=== PATIENT | female | born 1935 | race Caucasian/White ===

== ENCOUNTER 2016-10-27 11:00 | Emergency (ER) | payer MEDICARE ==
[2016-10-27 11:58] LABS: BILIRUBIN NEGATIVE (NEGATIVE); BLOOD NEGATIVE Ery/uL (NEGATIVE); CLARITY CLEAR (CLEAR); COLOR YELLOW (YELLOW); GLUCOSE (U) NORMAL (NORMAL); KETONE (U) NEGATIVE (NEGATIVE); LEUKOCYTES NEGATIVE Leu/uL (NEGATIVE); NITRITE NEGATIVE (NEGATIVE); PROTEIN NEGATIVE (NEGATIVE); SPECIFIC GRAVITY <=1.005 (1.001-1.030); UROBILINOGEN 0.2 mg/dL (0.2-1.0); pH 6.5 (5.0-9.0)
[2016-10-27 11:59] LABS: BASOPHIL 0.1 % (0-2); EOSINOPHIL 0.1 % (0-7); HCT 41.9 % (37.0-47.0); HGB 14.1 g/dl (12.5-16.0); LYMPHOCYTE 18.9 % (15-48); MCH 29.5 pg (25.0-31.0); MCHC 33.7 g/dL (32.0-36.0); MCV 87.7 fL (78.0-100.0); MONOCYTE 8.1 % (0-12); MPV 8.7 fL (6.0-9.5); NEUTROPHIL 72.8 % (41-80); PLT 283 K/uL (150-400); RBC 4.78 M/uL (4.20-5.40); RDW 12.4 % (11.5-14.0); WBC 7.4 K/uL (4.0-10.5)
[2016-10-27 12:01] LABS: CREATININE 0.7 mg/dL (0.5-1.0); POTASSIUM 4.2 mmol/L (3.5-5.1)
== END 2016-10-27 12:45 | disposition home or self-care (01) ==
LOC: FER 11:00
PROVIDERS: Nurse Practitioner Family
DX: R42 Dizziness and giddiness (principal); I10 Essential (primary) hypertension; K21.9 Gastro-esophageal reflux disease without esophagitis; Z88.0 Allergy status to penicillin; Z88.2 Allergy status to sulfonamides
CPT/HCPCS: 36415; 80048; 81003; 85025; 99284